=== PATIENT | male | born 1970 | race Caucasian/White ===

== ENCOUNTER 2020-04-12 11:54 | Emergency (ER) | payer SELFPAY ==
[~2020-04-12] VITALS: Ht 175.3 cm; Wt 79.5 kg
[2020-04-12] MEDS ORDERED: NALOXONE 0.4 MG/ML, 1ML ONE (11:58)
[2020-04-12] MEDS ORDERED: NALOXONE 1 MG/ML, 2ML ONE (12:17)
[2020-04-12 12:22] LABS: BASOPHILS % (AUTO) 1 % (0-1); EOSINOPHILS % (AUTO) 2 % (1-7); LYMPHOCYTES % (AUTO) 14 % (22-44); MD NO; MEAN CORPUSCULAR HEMOGLOBIN 32.5 pg (27.5-34.5); MEAN CORPUSCULAR HGB CONC 34.7 g/dL (33.2-36.2); MEAN PLATELET VOLUME 7.8 fL (7.4-10.4); MONOCYTES % (AUTO) 7 % (2-9); NEUTROPHILS % (AUTO) 77 % (42-75); PLATELET COUNT 278 x10^3/uL (130-400); RED BLOOD COUNT 4.96 x10^6/uL (4.38-5.82); RED CELL DISTRIBUTION WIDTH 12.6 % (9.4-14.8)
[2020-04-12] MEDS ORDERED: NALOXONE 1 MG/ML, 2ML IVPush ONE (12:30)
[2020-04-12] MEDS ORDERED: SODIUM CHLORIDE 0.9% 1,000ML IVBOLUS ONE (12:30)
[2020-04-12] MEDS ORDERED: NALOXONE 0.4 MG/ML, 1ML IVPush PRN (12:30)
[2020-04-12 12:33] LABS: ALBUMIN 4.1 g/dL (3.4-5.0); ANION GAP 5 mmol/L (5-15); CALCIUM 9.1 mg/dL (8.5-10.1); CHLORIDE 107 mmol/L (98-107); CREATININE 1.12 mg/dL (0.7-1.3)
[2020-04-12 12:34] LABS: SALICYLATE LEVEL < 1.7 mg/dL (2.8-20.0)
[2020-04-12 12:36] LABS: ALANINE AMINOTRANSFERASE 104 U/L (12-78); ALKALINE PHOSPHATASE 78 U/L (45-117); BILIRUBIN,TOTAL 0.6 mg/dL (0.2-1.0); TOTAL PROTEIN 7.8 g/dL (6.4-8.2)
--- NOTE | 2020-04-12 12:47 | NUR ---
LATE ENTRY FOR 1156 BIB EMS, POSSIBLE OD OF UNK DRUG. PER TRU' SHE RPTS THAT PT WENT TO SLEEP AROUND 1000. SHE WAS TRYING TO ARROUSE HIM AN HOUR LATER AND WAS NOT ABLE TO GET HIM TO WAKE UP. SHE SAID SHE TRIED FOR ABOUT 45MIN BEFORE SHE CALLED 911. EMS RPTS RA SP02 = 88%. EMS EST PIV AND GAVE 0.5MG NARCAN WITH EFFECT. PT ARRIVES UNRESPONSIVE IN ED ON 02 100% NRB RR 6. DR PETER AT BEDSIDE, PT ASSESSMENT REVIEWED. ADDILTION 0.4 MG NARCAN GIVEN W/O EFFECT. ETC02 = 45, NS 1LITER BOLUS INITIATED. VSS. WILL CONTINUE TO MONITOR, RN AT BEDSIDE 1:1. PT VAUGHN HALE AT BEDSIDE, POC DISCUSSED AND QUESTIONS ANSWERED.
--- NOTE | 2020-04-12 12:49 | NUR ---
RN STIMULATED PT, RAISED HAND ABOVE HIS FACE AND WHEN DROPPED ARM FALLS AWAY FROM FACE AVOIDING HITTING HIMSELF. PAINFUL STIMULI TO NAIL BED OF LEFT GREAT TOE AND PT ARROUSES, OPENS EYES, ACKNOWLEDGES FIANCE', FLOYD EXT WITH PURPOSE TO HUG AND RUB FIANCE'S BACK. PT THEN RTNS TO SLEEPING WITH PERIODIC MOMENTS OF SPON AWAKENING. PT FOLLOWS SIMPLE COMMANDS AND ABLE TO VERBALIZED HIS FULL NAME.
[2020-04-12] MEDS ORDERED: POTASSIUM CHLORIDE 20 MEQ TAB.ER.PRT ONE (13:40)
--- NOTE | 2020-04-12 13:46 | NUR ---
PT MORE ALERT, CONVERSES WITH RN AND VAUGHN. VSS. TOLERATING PO FLUIDS W/O DIFFICULTY. POTASSIUM REPLACEMENT GIVEN NOTED. WATER AND CRACKERS AT BEDSIDE.
[2020-04-12] MEDS ORDERED: ONDANSETRON 2MG/ML, 2ML ONE (13:53)
[2020-04-12] MEDS ORDERED: ONDANSETRON 2MG/ML, 2ML IVPush ONE (14:00)
[2020-04-12] MEDS ORDERED: POTASSIUM CHLORIDE 20 MEQ TAB.ER.PRT PO ONE (14:00)
[2020-04-12 14:24] VITALS: BP 136/84
--- NOTE | 2020-04-12 14:25 | NUR ---
Patient/Caregiver given discharge instructions and they have confirmed that they understand the instructions. Patient ambulatory with steady gait. PT D/C WITH VAUGHN HALE. VAUGHN VERBALIZES THAT SHE WILL BE WITH HIM ALL DAY.
== END 2020-04-12 14:26 | disposition home or self-care (01) ==
LOC: ED 12:04
DX: E87.6 Hypokalemia (principal); T41.291A Poisoning by other general anesthetics, accidental (unintentional), initial encounter; R00.1 Bradycardia, unspecified; R41.82 Altered mental status, unspecified; F17.200 Nicotine dependence, unspecified, uncomplicated; Y92.89 Other specified places as the place of occurrence of the external cause
CPT/HCPCS: 36415; 80053; 80299; 80320; 80329; 85025; 93005; 96361; 96374; 96375; 99291; J2310; J7030; G0480